=== PATIENT | male | born 1960 | race Caucasian/White ===

== ENCOUNTER 2019-02-27 14:42 | Emergency (ER) | payer OTHER ==
[~2019-02-27] VITALS: Ht 165.1 cm; Wt 84.4 kg
[2019-02-27 15:00] VITALS: BP 135/81
--- NOTE | 2019-02-27 15:00 | NUR ---
58 Y MALE BIB SELF C/O RIGHT KNEE PAIN, SWELLING, REDNESS X 2 WKS. PT STATES HE WAS CRAWLING UNDERNEATH HOME POSSIBLY PUNCTURED KNEE WITH OLD PIECE OF METAL/STAPLE. -ROM, PALPABLE PEDAL PULSE. PAIN ACHING 8/10. UNABLE TO FLEX KNEE. BED IS DOWN, LOCKED, BED RAIL X 1, ERMD NOTFIEID. HASNT RECIEVED TETANUS IN TEN YEARS PER PT HX--DENIES RX---NONE
--- NOTE | 2019-02-27 15:09 | NUR ---
PT AMBULATED TO BED 09.
--- NOTE | 2019-02-27 16:00 | NUR ---
DR LUND AT BEDSIDE
[2019-02-27] MEDS ORDERED: KETOROLAC 60 MG/2 ML VIAL IM ONE (16:05)
[2019-02-27] MEDS ORDERED: CLINDAMYCIN 600 MG/4 ML VIAL IM ONE (16:05)
--- NOTE | 2019-02-27 17:00 | NUR ---
VSS AT THIS TIME. AA0X4. PT SITTING IN BED.
--- NOTE | 2019-02-27 18:08 | NUR ---
BLAKE WRAP COMPLETED BY SEMAJ EMT, PT VERBALIZES UNDERSTANDING OF USE. PALPABLE PEDAL PULSES
[2019-02-27 18:16] VITALS: BP 132/78
--- NOTE | 2019-02-27 18:16 | NUR ---
Patient discharged with v/s stable. Written and verbal after care instructions given and explained. Patient alert, oriented and verbalized understanding of instructions. Ambulatory with steady gait. All questions addressed prior to discharge. ID band removed. Patient advised to follow up with PMD. Rx of BACTRIM, MOTRIN given. Patient educated on indication of medication including possible reaction and side effects. Opportunity to ask questions provided and answered.
== END 2019-02-27 18:16 | disposition home or self-care (01) ==
LOC: MED 14:42
DX: L03.115 Cellulitis of right lower limb (principal); Z85.9 Personal history of malignant neoplasm, unspecified
CPT/HCPCS: 73562; 90471; 90715; 96372; 99283; J1885; J3490; Q0092

== ENCOUNTER 2019-03-09 10:59 | Inpatient (IN) | payer OTHER ==
[~2019-03-09] VITALS: Ht 167.6 cm; Wt 86.2 kg
[2019-03-09 11:03] VITALS: BP 126/81
--- NOTE | 2019-03-09 11:10 | NUR ---
PT AMB TO BED 4
--- NOTE | 2019-03-09 11:12 | NUR ---
58/M BIB FAMILY C/O RIGHT KNEE PAIN ,REDNESS & SWOLLEN & YELLOW/ GREEN DISCHARGE S/P KNEELED ON A JOVANNI NAIL X 1 MONTH. LAST TDAP 02/27/19. AAOX4 WITH EVEN AND STEADY GAIT. PATIENT STATES PAIN OF 3/10 AT THIS TIME. PATIENT POSITIONED FOR COMFORT. BEDRAILS UP X1; BED DOWN. ER MD MADE AWARE OF PT STATUS.
--- NOTE | 2019-03-09 11:12 | NUR ---
Note undone in [facility] - 03/09/19 at 1121 by [email or web address] 58/M BIB FAMILY C/O RIGHT KNEE PAIN & SWOLLEN & YELLOW/ GREEN DISCHARGE S/P KNEELED ON A JOVANNI NAIL X 1 MONTH. AAOX4 WITH EVEN AND STEADY GAIT. PATIENT STATES PAIN OF 3/10 AT THIS TIME. PATIENT POSITIONED FOR COMFORT. BEDRAILS UP X1; BED DOWN. MINH SHAW MADE AWARE OF PT STATUS. Addendum: 03/09/19 at 1120 by [email or web address] Amendment undone in [facility] - 03/09/19 at 1121 by [email or web address] LLL REDNESS & SWOLLEN. LAST TDAP 02/27/19.
[2019-03-09] MEDS ORDERED: NACL 0.9% 1,000 ML IV SCH (11:42)
[2019-03-09] MEDS ORDERED: CLINDAMYCIN 900 MG in DEXTROSE 5% 100 ML IV ONE (11:45)
[2019-03-09] MEDS ORDERED: CLINDAMYCIN 900 MG/6 ML VIAL IV ONE (12:00)
[2019-03-09 12:08] LABS: BASOPHILS # (AUTO) 0.1 K/uL (0.00-0.22); BASOPHILS % (AUTO) 0.7 % (0.0-2.0); EOSINOPHILS # (AUTO) 0.4 K/uL (0-0.4); EOSINOPHILS % (AUTO) 4.3 % (0.0-4.0); HEMATOCRIT 41.4 % (36-52); HEMOGLOBIN 13.9 g/dL (12.0-18.0); LYMPHOCYTES # (AUTO) 2.7 K/uL (2.0-11.5); LYMPHOCYTES % (AUTO) 27.5 % (20.5-51.1); MEAN CORPUSCULAR HEMOGLOBIN 30 pg (27-31); MEAN CORPUSCULAR HGB CONC 34 g/dL (33-37); MEAN CORPUSCULAR VOLUME 88.2 fL (80-94); MONOCYTES # (AUTO) 0.6 K/uL (0.8-1.0); MONOCYTES % (AUTO) 5.8 % (1.7-9.3); NEUTROPHILS # (AUTO) 6.1 K/uL (1.8-7.7); NEUTROPHILS % (AUTO) 61.7 % (42.2-75.2); PLATELET COUNT (AUTO) 486 K/uL (140-450); RED BLOOD CELL COUNT(AUTO) 4.69 MIL/uL (4.20-6.10); RED CELL DISTRIBUTION WIDTH 13.2 % (11.6-13.7); WHITE BLOOD COUNT (AUTO) 9.9 K/uL (4.8-10.8)
--- NOTE | 2019-03-09 12:11 | NUR ---
IV 18 GA A/C DONE-BLOOD SENT TO LAB WITH 2X BLOOD FOR C&S. UA SENT, U/S CALLED.
--- NOTE | 2019-03-09 12:12 | NUR ---
IVF/IVPB MEDS GIVEN-NADR AT THIS TIME
[2019-03-09 12:17] LABS: APPEARANCE,URINE CLEAR (CLEAR); BILIRUBIN,URINE NEGATIVE (NEGATIVE); BLOOD, URINE NEGATIVE (NEGATIVE); COLOR,URINE YELLOW (YELLOW); LEUKOCYTE ESTERASE ,URINE NEGATIVE (NEGATIVE); NITRITE, URINE NEGATIVE (NEGATIVE); PH,URINE 5.5 (5.0-9.0); UGLUCOSE NEGATIVE (NEGATIVE)
--- NOTE | 2019-03-09 12:18 | NUR ---
SWAB PUS AT R KNEE DONE. 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
--- NOTE | 2019-03-09 12:18 | NUR ---
US AT BEDSIDE.
[2019-03-09 12:31] LABS: PROTHROMBIN TIME 10.2 secs (10.8-13.4)
[2019-03-09 12:45] LABS: ANION GAP 13.5 (8-16); CARBON DIOXIDE 23.8 mmol/L (21-32); POTASSIUM 4.3 mmol/L (3.5-5.1)
[2019-03-09 12:54] LABS: ALBUMIN 3.2 g/dL (3.4-5.0); TOTAL BILIRUBIN 0.1 mg/dL (0.0-1.0)
[2019-03-09 13:12] LABS: URIC ACID 3.4 mg/dL (2.6-7.2)
[2019-03-09] MEDS ORDERED: ACETAMINOPHEN 325 MG TAB PO PRN (14:05)
[2019-03-09] MEDS ORDERED: ONDANSETRON 4 MG/2 ML VIAL IVP PRN (14:05)
[2019-03-09] MEDS ORDERED: DOCUSATE SODIUM 250 MG GELCAP PO PRN (14:05)
[2019-03-09] MEDS ORDERED: ACETAMINOPHEN 650 MG SUPP RC PRN (14:05)
[2019-03-09 14:30] VITALS: BP 139/79
--- NOTE | 2019-03-09 14:30 | NUR ---
PATIENT WAS TRANSFERRED FROM ED. PATIENT AMBULATED SELF TO BED, STEADY GAIT. REPORT WAS GIVEN AT BEDSIDE. MRSA WAS SWABBED. PATIENT WAS AWAKE, ALERT. RESPIRATION EVEN, UNLABOR ON ROOM AIR. SKIN DRY AND WARM. IV PATENT AND INTACT. WOUND PICTURE WAS TAKEN. COMPLAINED OF HEADACHE 4/10, WILL MEDICATE PER ORDER. PATIENT WAS ORIENTED TO ROOM, STAFF, AND CALL LIGHT. PLAN OF CARE WAS DISCUSSED WITH PATIENT. BED AT LOW POSITION, SIDE RAILS UP. CALL LIGHT WITHIN REACH
--- NOTE | 2019-03-09 14:30 | NUR ---
Patient will be admitted to care of DR LAGUNAS . Admited to [facility]. Will go to [facility]. Belongings list completed. Report to SUNG SHELBY.
[2019-03-09 16:00] VITALS: BP 110/73
--- NOTE | 2019-03-09 16:00 | NUR ---
PATIENT WAS SLEEPING COMFORTABLY. RESPIRATION EVEN, UNLABOR ON ROOM AIR. DENIED PAIN AT THIS TIME. NO DISTRESS NOTED.
--- NOTE | 2019-03-09 18:19 | NUR ---
PATIENT WAS RESTING COMFORTABLY. RESPIRATION EVEN, UNLABOR ON ROOM AIR. IV PATENT AND INTACT. NO DISTRESS NOTED AT THIS TIME
--- NOTE | 2019-03-09 19:00 | NUR ---
SURGERY CONSENT WAS OBTAINED AT BEDSIDE, SIGNED BY PATIENT. DR LEACH WAS AT BEDSIDE
[2019-03-09] MEDS ORDERED: LIDOCAINE MPF 1% 5mL VIAL ONE (19:19)
[2019-03-09] MEDS ORDERED: HYDROmorphone 1 MG/ML AMP ONE (19:26)
--- NOTE | 2019-03-09 19:29 | NUR ---
ENDORSEMENT GIVEN TO [employer] NURSE. PATIENT IS STABLE AT THIS TIME
[2019-03-09] MEDS ORDERED: HYDROmorphone 1 MG/ML AMP IVP SCH (19:30)
--- NOTE | 2019-03-09 19:30 | NUR ---
ASSISTED DR. LEACH WITH THE I&D PROCEDURE. ADMINISTERED DILAUDID 1MG. PATIENT TOLERATED WELL. WILL CONTINUE TO MONITOR
--- NOTE | 2019-03-09 19:30 | NUR ---
RECEIVED BEDSIDE REPORT FROM DAY SHIFT NURSE. PATIENT AWAKE, ALERT, AND COOPERATIVE. RESPIRATION EVEN UNLABORED ON ROOM AIR. NO DISTRESS NOTED. SKIN IS WARM AND DRY. IV PATENT AND INTACT. RIGHT KNEE CELLULITIS NOTED. PLAN OF CARE WAS DISCUSSED. ALL SAFETY MEASURES ARE IN PLACE. BED IS AT LOW POSITION. CALL LIGHT WITHIN REACH. AWAITING FOR DR. LEACH TO DO THE I&D PROCEDURE.
[2019-03-09 20:00] VITALS: BP 133/70
--- NOTE | 2019-03-09 20:00 | NUR ---
INITIAL ASSESSMENT DONE. VITALS WERE TAKEN. PATIENT CONDITION STABLE. NO DISTRESS NOTED. WILL CONTINUE TO MONITOR
[2019-03-09] MEDS: CLINDAMYCIN PHOS 600MG/D5W PM 50 ML IV SCH (20:43)
[2019-03-09] MEDS ORDERED: CLINDAMYCIN 600 MG in DEXTROSE 5% 50 ML IV SCH (21:00)
--- NOTE | 2019-03-09 21:00 | NUR ---
ALL SCHEDULED MEDS WERE GIVEN PER ORDER. NO ASE NOTED. PATIENT INCISION DRESSING INTACT AND DRY. WILL CONTINUE TO MONITOR
--- NOTE | 2019-03-09 22:00 | NUR ---
PATIENT SLEEPING RESPIRATION EVEN UNLABORED ON ROOM AIR. NO DISTRESS NOTED. WILL CONTINUE TO MONITOR.
--- NOTE | 2019-03-09 23:40 | NUR ---
PATIENT COMPLAINED OF LEG PAIN 6/10. PRN PAIN MED GIVEN PER ORDER. WILL CONTINUE TO MONITOR
[2019-03-09] MEDS: HYDROcodone/APAP 5/325 MG 1 TAB TAB PO PRN (23:47)
[2019-03-10] VITALS: BP 125/65
--- NOTE | 2019-03-10 | NUR ---
VITALS WERE TAKEN. PATIENT CONDITION STABLE. NO DISTRESS NOTED. SURGICAL INCISION DRESSING INTACT AND DRY. NO SWELLING NOTED. WILL CONTINUE TO MONITOR
--- NOTE | 2019-03-10 02:00 | NUR ---
CHECKED PATIENT. PATIENT SLEEPING RESPIRATION EVEN UNLABORED ON ROOM AIR. NO DISTRESS NOTED. WILL CONTINUE TO MONITOR.
--- NOTE | 2019-03-10 04:00 | NUR ---
PATIENT COMPLAINED OF LEG PAIN 6/10 PRN PAIN MED ADMINISTERED WILL CONTINUE TO MONITOR
[2019-03-10] MEDS: CLINDAMYCIN PHOS 600MG/D5W PM 50 ML IV SCH ×2 (04:08→13:11)
[2019-03-10] MEDS: HYDROcodone/APAP 5/325 MG 1 TAB TAB PO PRN ×2 (04:08→09:10)
--- NOTE | 2019-03-10 07:28 | NUR ---
ENDORSED PATIENT TO DAY SHIFT NURSE FOR CONTINUITY OF CARE. PATIENT IS STABLE.
--- NOTE | 2019-03-10 07:29 | NUR ---
RECEIVED REPORT FROM [employer] NURSE. PATIENT LYING DOWN IN BED. NO DISTRESS NOTED. PAIN TOLERABLE AT THIS TIME. AAOX4, CALM, COOPERATIVE, SKIN COLOR APPROPRIATE TO ETHNICITY, WARM TO TOUCH. RIGHT KNEE S/P I&D 03/09/19, DRESSING DRY AND INTACT. IV SITE INTACT, PATENT, AND INFUSING IVF PER MD ORDERS. RESPIRATIONS EVEN, UNLABORED, ON ROOM AIR. REVIEWED PLAN OF CARE WITH PATIENT. PATIENT VERBALIZED UNDERSTANDING. SAFETY MEASURES IN PLACE, CALL LIGHT WITHIN REACH. WILL CONTINUE TO MONITOR.
[2019-03-10 08:00] VITALS: BP 132/75
[2019-03-10 08:21] LABS: ANION GAP 7.1 (8-16); CARBON DIOXIDE 29.1 mmol/L (21-32); CREATININE 1.1 mg/dL (0.7-1.3); POTASSIUM 5.2 mmol/L (3.5-5.1); TOTAL BILIRUBIN 0.2 mg/dL (0.0-1.0)
--- NOTE | 2019-03-10 08:28 | NUR ---
PATIENT HAS BEEN SCREENED AND CATEGORIZED MODERATE NUTRITION RISK. PATIENT WILL BE SEEN WITHIN 3-5 DAYS OF ADMISSION. 03/12/19[address]
[2019-03-10 08:38] LABS: BASOPHILS % (AUTO) 0.5 % (0.0-2.0); EOSINOPHILS # (AUTO) 0.3 K/uL (0-0.4); EOSINOPHILS % (AUTO) 3.4 % (0.0-4.0); HEMATOCRIT 40.9 % (36-52); HEMOGLOBIN 13.7 g/dL (12.0-18.0); LYMPHOCYTES # (AUTO) 2.3 K/uL (2.0-11.5); LYMPHOCYTES % (AUTO) 23.6 % (20.5-51.1); MEAN CORPUSCULAR HEMOGLOBIN 30 pg (27-31); MEAN CORPUSCULAR HGB CONC 34 g/dL (33-37); MEAN CORPUSCULAR VOLUME 88.6 fL (80-94); MONOCYTES # (AUTO) 0.6 K/uL (0.8-1.0); MONOCYTES % (AUTO) 6.3 % (1.7-9.3); NEUTROPHILS # (AUTO) 6.4 K/uL (1.8-7.7); NEUTROPHILS % (AUTO) 66.2 % (42.2-75.2); PLATELET COUNT (AUTO) 436 K/uL (140-450); RED BLOOD CELL COUNT(AUTO) 4.62 MIL/uL (4.20-6.10); RED CELL DISTRIBUTION WIDTH 13.2 % (11.6-13.7); WHITE BLOOD COUNT (AUTO) 9.7 K/uL (4.8-10.8)
--- NOTE | 2019-03-10 09:02 | NUR ---
Spoke with Renée from Dr. [facility] Bustos[facility] and she will talk to the doctor first before she gives an appointment since Dr. Bustos is already fully booked until the end of March. Renée will call the patient and give the appointment herself after she talks to Dr. Bustos.
--- NOTE | 2019-03-10 09:11 | NUR ---
PATIENT C/O OF PAIN, NORCO GIVEN. WILL CONTINUE TO MONITOR.
--- NOTE | 2019-03-10 11:30 | NUR ---
PATIENT LYING DOWN IN BED. NO DISTRESS NOTED. CONDITION UNCHANGED. WILL CONTINUE TO MONITOR.
--- NOTE | 2019-03-10 13:15 | NUR ---
PATIENT RESTING COMFORTABLY IN BED. DENIES ANY PAIN AT THIS TIME. ADMINISTERED SCHEDULED MEDS. WILL CONTINUE TO MONITOR.
--- NOTE | 2019-03-10 15:51 | NUR ---
SPOKE WITH QING FROM DR. ARORA'S OFFICE. SHE SAID SHE ALREADY SPOKE WITH THE PATIENT AND SET UP A FOLLOW UP APPOINTMENT FOR 03/14/19 AT 2:15 P.M. [address]ESS [address] [place] [address]. PHONE [phone].
--- NOTE | 2019-03-10 16:00 | NUR ---
DR. LAGUNAS AT BEDSIDE REVIEWING PLAN OF CARE WITH PATIENT. PER DR. LAGUNAS, PATIENT IS ABLE TO BE DISCHARGED HOME TODAY WITH FOLLOW-UP WITH DR. LEACH. WILL CONTINUE TO MONITOR.
[2019-03-10] MEDS ORDERED: INFLUENZA VIRUS VACCINE QUAD 0.5 ML SYR IMVAC PRN (16:10)
--- NOTE | 2019-03-10 16:30 | NUR ---
DISCHARGE INSTRUCTIONS GIVEN TO PATIENT IN PREFERRED LANGUAGE OF MALTESE. INSTRUCTIONS REGARDING FOLLOW-UP WITH DR. LEACH, NEW/CHANGED MEDICATION REGIMEN, DIET REGIMEN, AND FOLLOW-UP WITH PCP. ANSWERED ALL OF PATIENT'S QUESTIONS REGARDING DISCHARGE. ALL BELONGINGS WITH PATIENT. PRESCRIPTIONS GIVEN TO PATIENT. AWAITING FOR PATIENT'S FRIEND TO ARRIVE TO TAKE PATIENT HOME. WOUND CARE MANAGEMENT INSTRUCTIONS GIVEN TO PATIENT. PATIENT VERBALIZED UNDERSTANDING.
--- NOTE | 2019-03-10 16:50 | NUR ---
PATIENT'S FRIEND AT BEDSIDE READY TO TAKE PATIENT HOME. ALL BELONGINGS WITH PATIENT. ID BANDS REMOVED. IV SITE REMOVED WITH MINIMAL BLOOD AND LUMEN COMPLETELY INTACT. ESCORTED PATIENT DOWN TO LOBBY VIA STEADY AMBULATION. PATIENT DISCHARGED TO HOME AT THIS TIME IN STABLE CONDITION.
== END 2019-03-10 16:50 | disposition home or self-care (01) | DRG 364 ==
LOC: MED 10:59 → MTU 14:13
PROVIDERS: ADMIT Internal Medicine Pulmonary Disease; ATTEND Internal Medicine Pulmonary Disease
PROC: 0J9N0ZZ Drainage of Right Lower Leg Subcutaneous Tissue and Fascia, Open Approach (ICD-10-PCS; principal; 2019-03-09)
PROC: 3E02340 Introduction of Influenza Vaccine into Muscle, Percutaneous Approach (ICD-10-PCS; 2019-03-10)
DX: L03.115 Cellulitis of right lower limb (principal); E83.51 Hypocalcemia; L02.415 Cutaneous abscess of right lower limb; K64.4 Residual hemorrhoidal skin tags; Z85.820 Personal history of malignant melanoma of skin; Z23 Encounter for immunization
CPT/HCPCS: 36415; 36600; 80053; 81003; 82803; 83605; 83735; 84484; 84550; 85025; 85379; 85610; 87040; 87070; 87081; 87086; 87186; 93005; 93971; 96365; 99285; J1170; J2001; J3490; J7030; Q0092